=== PATIENT | female | born 1980 | race Caucasian/White ===

== ENCOUNTER 2016-08-25 18:50 | Emergency (ER) | payer OTHER, MEDICAID ==
[2016-08-25] MEDS ORDERED: PREDNISONE 20 MG TAB PO ONE (19:04)
--- NOTE | 2016-08-25 19:10 | Emergency Department Record ---
History of Present Illness - General Chief complaint: Rash Stated complaint: RASH ON BOTH ARMS Time Seen by Provider: 08/25/16 19:04 Source: Patient Mode of Arrival: Ambulatory Limitations: No limitations - History of Present Illness Initial comments: 36 yo female presents with an itchy rash to the bilateral arms. She reports she has been working out doors. No fever. No other current systems. MD complaint: Rash -: Days(s) (2) Location: LUE, RUE Severity: Moderate Quality: Other (itches) Improves with: None Worsens with: None Context: Other (Working out side) Associated symptoms: Itching Treatments Prior to Arrival: None - Related Data Home Medications Medication Instructions Recorded Confirmed Last Taken Clonazepam [Clonazepam] 0.5 mg PO DAILY 08/25/16 08/25/16 Unknown Desvenlafaxine Succinate [Pristiq] 50 mg PO DAILY 08/25/16 08/25/16 Unknown Lurasidone HCl [Latuda] 20 mg PO DAILY 08/25/16 08/25/16 Unknown Modafinil [Modafinil] 200 mg PO DAILY 08/25/16 08/25/16 Unknown Previous Rx's Medication Instructions Recorded Prednisone [Prednisone 20Mg] 20 mg PO BID #10 tab 08/25/16 Allergies Allergy/AdvReac Type Severity Reaction Status Date / Time No Known Drug Allergies Allergy Verified 08/25/16 19:01 Review of Systems Constitutional: Denies: Chills, Fever, Weakness Eyes: Reports: Eye discharge ENT: Denies: Congestion Respiratory: Denies: Cough Cardiovascular: Denies: Chest pain, Palpitations Endocrine: Denies: Fatigue Gastrointestinal: Denies: Diarrhea, Nausea, Vomiting Musculoskeletal: Denies: Arthralgia, Back pain, Joint swelling, Myalgia Skin: Reports: Change in color, Rash. Denies: Bruising Neurological: Denies: Headache Psychiatric: Denies: Anxiety Hematological/Lymphatic: Denies: Blood Clots, Easy bleeding, Easy bruising, Swollen glands Physical Exam - General General Appearance: Alert, Oriented x3, Cooperative, No acute distress Limitations: No limitations - Head Head exam: Normal inspection - Eye Eye exam: Normal appearance, PERRL - ENT ENT exam: Normal exam, Mucous membranes moist Ear exam: Normal external inspection Nasal Exam: Normal inspection Mouth exam: Normal external inspection Teeth exam: Normal inspection Throat exam: Normal inspection - Neck Neck exam: Normal inspection, Full ROM. negative: Tenderness - Respiratory Respiratory exam: Normal lung sounds bilaterally. negative: Respiratory distress - Cardiovascular Cardiovascular Exam: Regular rate, Normal rhythm, Normal heart sounds - GI/Abdominal GI/Abdominal exam: Soft - Rectal Rectal exam: Deferred - exam: Deferred - Extremities Extremities exam: negative: Normal inspection, Tenderness Image of Full Body: 1 - Erythematous, scaly, rasied patch macular papular CW contact dermatitis 2 - Erythematous, scaly, rasied patch macular papular CW contact dermatitis - Back Back exam: Reports: Normal inspection, Full ROM. Denies: Muscle spasm, Rash noted, Tenderness - Neurological Neurological exam: Alert, Normal gait, Oriented X3, Reflexes normal - Psychiatric Psychiatric exam: Normal affect, Normal mood - Skin Skin exam: Erythema Type of lesion: Rash Course - Reevaluation(s) Reevaluation #1: Rash is CW contact dermatitis 08/25/16 19:09 Disposition Disposition: Discharge Clinical Impression: Contact dermatitis Qualifiers: Contact dermatitis type: allergic Contact dermatitis trigger: non-food plants Qualified Code(s): L23.7 - Allergic contact dermatitis due to plants, except food Disposition: Home, Self-Care Condition: (1) Good Instructions: Contact Dermatitis (ED) Additional Instructions: Prednisone as directed twice daily Return if worse, fever or any new concerns Prescriptions: Prednisone [Prednisone 20Mg] 20 mg PO BID #10 tab Forms: Patient Portal Access Time of Disposition: 19:10
== END 2016-08-25 19:29 | disposition home or self-care (01) ==
LOC: ER 18:50
DX: L23.7 Allergic contact dermatitis due to plants, except food (principal)
CPT/HCPCS: 99282; J7512

== ENCOUNTER 2017-02-25 11:58 | Emergency (ER) | payer MEDICAID, OTHER ==
[2017-02-25 12:37] LABS: BASO % 0.1 % (0-6); EOS % 0.5 % (0-6); HEMATOCRIT 31.8 % (35.0-47.0); HEMOGLOBIN 9.6 gm/dl (11.6-16.0); MEAN CELL VOLUME 74.3 fl (81-97); MEAN CORPUSCULAR HEMOGLOBIN 22.4 pg (27-33); MEAN CORPUSCULAR HGB CONC 30.2 g/dl (32-36); MONO % 7.4 % (0-9); PLATELET COUNT 430 K/uL (130-400); RED BLOOD COUNT 4.28 M/uL (3.80-5.40); RED CELL DISTRIBUTION WIDTH 17.3 % (11.5-14.5); WHITE BLOOD COUNT W/O DIFF 9.7 K/uL (4.2-12.2)
[2017-02-25 12:48] LABS: ALB/GLOB RATIO 1.6 (1.1-1.8); ALBUMIN 4.2 gm/dL (3.5-5.0); ALKALINE PHOSPHATASE 33 U/L (38-126); ALT/SGPT 33 U/L (9-52); AST/SGOT 25 U/L (14-36); BILIRUBIN,TOTAL 0.51 mg/dL (0.2-1.3); BLOOD UREA NITROGEN 16 mg/dL (7-17); CREATININE 0.8 mg/dL (0.52-1.04); EST GLOMERULAR FILTRATION RATE > 60 ml/min; GLUCOSE,RANDOM 78 mg/dL (70-110); TOTAL PROTEIN 6.9 gm/dL (6.3-8.2)
[2017-02-25 13:19] LABS: THYROID STIMULATING HORMONE 0.97 uIU/ml (0.465-4.68)
--- NOTE | 2017-02-25 13:48 | Emergency Department Record ---
History of Present Illness - General Chief Complaint: Rapid heartbeat Stated Complaint: HEART FLUTTERING,RACING/BP HIGH Time Seen by Provider: 02/25/17 12:15 Source: Patient Mode of Arrival: Ambulatory Limitations: No limitations - History of Present Illness Initial Comments: pt feel s her heart has been racing off and on for the last 2 weeks. she has also felt tired and sob. she has been to her family doctor and she has an echo and halter monitor scheduled. she has no pain MD Complaint: "Heart racing", Palpitations Onset/Timin -: Days(s) Context: Occurred during rest Associated Symptoms: Shortness of breath - Related Data Allergies Allergy/AdvReac Type Severity Reaction Status Date / Time No Known Drug Allergies Allergy Verified 02/25/17 12:05 Travel Screening - Travel/Exposure Within Last 30 Days Have you traveled within the last 30 days?: No Review of Systems Reviewed: No additional complaints except as noted below Constitutional: Reports: As per HPI. Denies: Chills, Fever, Malaise, Night sweats, Weakness, Weight change Eyes: Reports: As per HPI. Denies: Eye discharge, Eye pain, Photophobia, Vision change ENT: Reports: As per HPI. Denies: Congestion, Dental pain, Ear pain, Epistaxis , Hearing loss, Throat pain Respiratory: Reports: As per HPI. Denies: Cough, Dyspnea, Hemoptysis, Stridor, Wheezes Cardiovascular: Reports: As per HPI. Denies: Arrhythmia, Chest pain, Dyspnea on exertion, Edema, Murmurs, Orthopnea, Palpitations, Paroxysmal nocturnal dyspnea, Rheumatic Fever, Syncope Endocrine: Reports: As per HPI. Denies: Fatigue, Heat or cold intolerance, Polydipsia, Polyuria Gastrointestinal: Reports: As per HPI. Denies: Abdominal pain, Constipation, Diarrhea, Hematemesis, Hematochezia, Melena, Nausea, Vomiting Genitourinary: Reports: As per HPI. Denies: Abnormal menses, Discharge, Dyspareunia, Dysuria, Frequency, Hematuria, Incontinence, Retention, Urgency Musculoskeletal: Reports: As per HPI. Denies: Arthralgia, Back pain, Gout, Joint swelling, Myalgia, Neck pain Skin: Reports: As per HPI. Denies: Bruising, Change in color, Change in hair/ nails, Lesions, Pruritus, Rash Neurological: Reports: As per HPI. Denies: Abnormal gait, Confusion, Headache, Numbness, Paresthesias, Seizure, Tingling, Tremors, Vertigo, Weakness Psychiatric: Reports: As per HPI. Denies: Anxiety, Auditory hallucinations, Depression, Homicidal thoughts, Suicidal thoughts, Visual hallucinations Hematological/Lymphatic: Reports: As per HPI. Denies: Anemia, Blood Clots, Easy bleeding, Easy bruising, Swollen glands Past Medical History - SOCIAL HISTORY Smoking Status: Current every day smoker Alcohol Use: Occasional Drug Use: None - RESPIRATORY Hx Respiratory Disorders: No - CARDIOVASCULAR Hx Cardio Disorders: Yes Hx Hypertension: Yes - NEURO Hx Neuro Disorders: No - GI Hx GI Disorders: No - Hx Genitourinary Disorders: No - ENDOCRINE Hx Endocrine Disorders: No - MUSCULOSKELETAL Hx Musculoskeletal Disorders: No - PSYCH Hx Psych Problems: Yes Hx Behavior Problems: Yes (Bipolar) - HEMATOLOGY/ONCOLOGY Hx Hematology/Oncology Disorders: No Family Medical History Any Significant Family History?: Yes Hx Cancer: Grandparents *Cancer Comment: Aunt Hx Diabetes: Grandparents Hx HTN: Father, Grandparents Physical Exam - General General Appearance: Alert, Oriented x3, Cooperative, Mild distress - Head Head exam: Normal inspection - Eye Eye exam: Normal appearance, PERRL, EOMI Pupils: Normal accommodation - ENT ENT exam: Normal exam, Mucous membranes moist, Normal external ear exam, Normal orophraynx Ear exam: Normal external inspection. negative: External canal tenderness Nasal Exam: Normal inspection. negative: Discharge, Sinus tenderness Mouth exam: Normal external inspection, Tongue normal Teeth exam: Normal inspection. negative: Dental caries Throat exam: Normal inspection. negative: Tonsillar erythema, Tonsillar exudate - Neck Neck exam: Normal inspection, Full ROM. negative: Tenderness - Respiratory Respiratory exam: Normal lung sounds bilaterally. negative: Respiratory distress - Cardiovascular Cardiovascular Exam: Regular rate, Normal rhythm, Normal heart sounds - GI/Abdominal GI/Abdominal exam: Soft, Normal bowel sounds. negative: Tenderness - Rectal Rectal exam: Deferred - exam: Deferred - Extremities Extremities exam: Normal inspection, Full ROM, Normal capillary refill. negative: Tenderness - Back Back exam: Reports: Normal inspection, Full ROM. Denies: Muscle spasm, Rash noted, Tenderness - Neurological Neurological exam: Alert, CN II-XII intact, Normal gait, Oriented X3 - Psychiatric Psychiatric exam: Normal affect, Normal mood - Skin Skin exam: Dry, Intact, Normal color, Warm Course Vital Signs 02/25/17 12:01 Temperature 98.8 F Pulse Rate 89 Respiratory 20 Rate Blood Pressure 143/81 Pulse Ox 100 Medical Decision Making - Lab Data Result diagrams: 02/25/17 12:32 02/25/17 12:32 Lab Results 02/25/17 02/25/17 02/25/17 Range/Units 12:32 12:32 12:32 WBC 9.7 (4.2-12.2) K/uL RBC 4.28 (3.80-5.40) M/uL Hgb 9.6 L (11.6-16.0) gm/dl Hct 31.8 L (35.0-47.0) % MCV 74.3 L (81-97) fl MCH 22.4 L (27-33) pg MCHC 30.2 L (32-36) g/dl RDW 17.3 H (11.5-14.5) % Plt Count 430 H (130-400) K/uL MPV 10.0 (7.4-10.4) fl Gran % 69.0 (47-80) % Lymphocytes % 23.0 (16-45) % Monocytes % 7.4 (0-9) % Eosinophils % 0.5 (0-6) % Basophils % 0.1 (0-6) % D-Dimer 0.31 (0-0.59) mg/L FEU Sodium 137 (136-145) mmol/L Potassium 4.3 (3.5-5.1) mmol/L Chloride 106 (98-107) mmol/L Carbon Dioxide 25.0 (22-30) mmol/L Anion Gap 6.0 L (7-16) BUN 16 (7-17) mg/dL Creatinine 0.8 (0.52-1.04) mg/dL Estimated GFR > 60 ml/min Random Glucose 78 (70-110) mg/dL Calcium 8.8 (8.5-10.1) mg/dL Total Bilirubin 0.51 (0.2-1.3) mg/dL AST 25 (14-36) U/L ALT 33 (9-52) U/L Alkaline Phosphatase 33 L (38-126) U/L NT-Pro-B Natriuret Pep 37.10 (<125) pg/mL Total Protein 6.9 (6.3-8.2) gm/dL Albumin 4.2 (3.5-5.0) gm/dL Globulin 2.7 (1.4-4.8) gm/dL Albumin/Globulin Ratio 1.6 (1.1-1.8) TSH 0.97 (0.465-4.68) uIU/ml Disposition Disposition: Discharge Clinical Impression: Heart palpitations Anemia Qualifiers: Anemia type: iron deficiency Iron deficiency anemia type: unspecified iron deficiency Qualified Code(s): D50.9 - Iron deficiency anemia, unspecified Disposition: Home, Self-Care Condition: (1) Good Instructions: Heart Palpitations (ED), Anemia (ED) Additional Instructions: follow up with family doctor. return sooner if worse. restart iron. have echo and heart monitor. Forms: Patient Portal Access Quality - Quality Measures Quality Measures: N/A - Blood Pressure Screening Does Patient Have Any of the Following: No Blood Pressure Classification: Pre-Hypertensive BP Reading Systolic Measurement: 143 Diastolic Measurement: 81 Screening for High Blood Pressure: < Pre-Hypertensive BP, F/U Documented > [ [id number]] Pre-Hypertensive Follow-up Interventions: Follow-up with rescreen every year.
--- NOTE | 2017-02-27 09:12 | RADIOLOGY REPORT ---
EXAM: CHEST, TWO VIEWS HISTORY: CHEST PAIN. TECHNIQUE: Frontal and lateral views of the chest were obtained. Comparison: Prior chest x-ray 12/28/11. FINDINGS: The heart size is normal. The lungs are clear. There is no pneumothorax. IMPRESSION: NEGATIVE CHEST EXAMINATION. JOB NUMBER: [id number] MTDD
== END 2017-02-25 14:05 | disposition home or self-care (01) ==
LOC: ER 11:58
DX: R00.2 Palpitations (principal); D50.9 Iron deficiency anemia, unspecified; R06.02 Shortness of breath; I10 Essential (primary) hypertension; F17.210 Nicotine dependence, cigarettes, uncomplicated
CPT/HCPCS: 71020; 80053; 83880; 84443; 85025; 85379; 93005; 93010; 99284